=== PATIENT | male | born 1960 | race Caucasian/White ===

== ENCOUNTER 2023-10-28 11:11 | Emergency (ER) | payer OTHER, SELFPAY ==
[2023-10-28 11:18] VITALS: BP 158/99; PULSE 91; RESP 16; TEMP 36.1; O2SAT 96; BMI 47.0
--- NOTE | 2023-10-28 14:38 | ED.SKABFB ---
HPI - Skin/Abscess/Foreign Bdy General Chief complaint: Skin/Abscess/Foreign Body Stated complaint: wounds on leg, drainage t-3months Time Seen by Provider: 10/28/23 14:18 Source: patient Mode of arrival: Family Vehicle History of Present Illness HPI narrative: 63-year-old male with history of PE on Xarelto presents by private vehicle from home for evaluation of bilateral lower extremity wounds. Patient states that approximately 3 months ago he accidentally cut himself on a trailer. He was evaluated by his primary care doctor and placed on amoxicillin. He states that his wounds have not healed over the last 3 months and continue to ooze. He states that he was about to go visit his father, who is dying of cancer, and wants to make sure that his wounds are addressed before he goes and stays with his father Related Data Previous Rx's Medication Instructions Recorded furosemide 20 mg tablet 20 mg PO DAILY #14 tabs 10/28/23 Allergies Allergy/AdvReac Type Severity Reaction Status Date / Time No Known Drug Allergies Allergy Verified 10/28/23 11:23 Review of Systems Review of Systems Narrative: See HPI Patient History Social History Smoking Status: Never smoker Smoking Status: Never smoker Substance Use Type: does not use Exam Initial Vital Signs Initial Vital Signs: Vital Signs Temperature 97.0 F L 10/28/23 11:18 Pulse Rate 91 H 10/28/23 11:18 Respiratory Rate 16 10/28/23 11:18 Blood Pressure 158/99 H 10/28/23 11:18 Pulse Oximetry 96 10/28/23 11:18 Oxygen Delivery Method Room Air 10/28/23 11:18 Const: Awake, alert, no acute distress, obese Cardiac: regular rate, regular rhythm RESP: unlabored, speaking in complete sentences MSK: Lymphedema bilateral lower extremities, no deformity Skin: Lower extremity lymphedema, small 2 cm ulceration anterior of right and left legs, 2 x 3 cm ulceration posterior left lower extremity Neuro: AO x3, CN II-XII grossly intact, moves all extremities Course Orders Ordered: ED Orders 10/28/23 14:50 CBC Auto Diff [Complete Blood Count AUTO DIFF] Stat CMP [Comprehensive Metabolic Panel] Stat Vital Signs Vital signs: Vital Signs - 8 hr 10/28/23 11:18 Temperature 97.0 F L Pulse Rate 91 H Respiratory Rate 16 Blood Pressure 158/99 H Pulse Oximetry 96 Oxygen Delivery Method Room Air MDM - Skin/Abscess/Foreign Bdy Lab Data 10/28/23 14:50 10/28/23 14:50 Labs: Lab Results 10/28/23 Range/Units 14:50 WBC 7.8 (4.5-11.0) X10^3/uL RBC 5.26 (4.5-5.9) X10^6/uL Hgb 15.9 (13.5-17.5) g/dL Hct 47.4 (41-53) % MCV 90.2 (80-100) fL MCH 30.3 (26-34) PG MCHC 33.5 (30-36) % RDW 14.6 (11.6-14.8) % Plt Count 142 L (150-400) X10^3/uL Neut % (Auto) 59.8 (50-75) % Lymph % (Auto) 25.7 (25-40) % Owsley % (Auto) 10.3 (3-14) % Eos % (Auto) 3.7 (2-4) % Baso % (Auto) 0.5 (0-2) % Neut # (Auto) 4600 (5746-0890) /uL Lymph # (Auto) 2000 (6817-7056) /uL Owsley # (Auto) 800 (0-900) /uL Eos # (Auto) 300 (0-450) /uL Baso # (Auto) 0 (0-100) /uL Sodium 140 (137-145) mmol/L Potassium 4.3 (3.4-5.1) mmol/L Chloride 111 H (98-107) mmol/L Carbon Dioxide 26 (22-32) mmol/L BUN 21 H (9-20) mg/dL Creatinine 1.05 (0.66-1.25) mg/dL Estimated GFR > 60 (>60) mL/min BUN/Creatinine Ratio 20.0 (6-22) Glucose 101 (80-110) mg/dL Calcium 8.8 (8.4-10.2) mg/dL Total Bilirubin 0.8 (0.2-1.3) mg/dL AST 30 (17-59) IU/L ALT 29 (<50) IU/L Alkaline Phosphatase 90 (38-126) U/L Total Protein 6.3 (6.3-8.2) g/dL Albumin 3.5 (3.5-5.0) g/dL Globulin 2.8 (1.7-4.1) g/dL Albumin/Globulin Ratio 1.3 (1.0-2.8) MDM Narrative Medical decision making narrative: Chronic nonhealing lower extremity wounds. Wounds do not appear to be acutely infected. He seems to have extensive lymphedema in his lower extremities from his knee down. Patient counseled on presumptive diagnosis of lymphedema as well as how it affects wound healing. He was placed in Placido wrap compression bandages, a wound care referral was faxed to establish patient. Short course of Lasix sent to pharmacy of choice. Patient states that after his father passes he will return to [place] for wound care. Discharge Plan Departure Patient Disposition: Home Clinical Impression: Lymphedema, Nonhealing nonsurgical wound Instructions: DI for Lymphedema Activity Restrictions/Additional Instructions: Your labs appear to be nonhealing, not due to infection, but likely lymphedema, which is usually a vein drainage problem. I placed a referral to the [facility], and to help with fluid retention I am sending a prescription for a water pill to your pharmacy. Take this daily for the next 1-2 weeks. Elevate your legs whenever at rest to help decrease swelling. Keep the wraps on your legs when possible to help decrease swelling and push fluid back Prescriptions: New furosemide 20 mg tablet 20 mg PO DAILY Qty: 14 0RF Stand Alone Forms: Patient Portal/API
[2023-10-28 15:03] LABS: Add Manual Diff / Slide Review NO; Basophils Absolute Auto 0 /uL (0-100); Basophils Percent Auto 0.5 % (0-2); Eosinophils Absolute Auto 300 /uL (0-450); Eosinophils Percent Auto 3.7 % (2-4); Hematocrit 47.4 % (41-53); Hemoglobin 15.9 g/dL (13.5-17.5); Lymphocytes Absolute Auto 2000 /uL (1100-4500); Lymphocytes Percent Auto 25.7 % (25-40); Mean Corpuscular HGB Conc 33.5 % (30-36); Mean Corpuscular Hemoglobin 30.3 PG (26-34); Mean Corpuscular Volume 90.2 fL (80-100); Monocytes Absolute Auto 800 /uL (0-900); Monocytes Percent Auto 10.3 % (3-14); Neutrophils Absolute Auto 4600 /uL (1500-7000); Neutrophils Percent Auto 59.8 % (50-75); Platelet Count 142 X10^3/uL (150-400); Red Blood Cell Count 5.26 X10^6/uL (4.5-5.9); Red Cell Distribution Width 14.6 % (11.6-14.8); White Blood Cell Count 7.8 X10^3/uL (4.5-11.0)
--- NOTE | 2023-10-28 15:23 | PC.NURSE ---
Applied non-adherent dressing over wounds and wrapped bilateral LE with zaina wraps. Pt tolerated procedure well.
[2023-10-28 15:27] LABS: Alanine Aminotransferase 29 IU/L (<50); Albumin 3.5 g/dL (3.5-5.0); Albumin Globulin Ratio 1.3 (1.0-2.8); Alkaline Phosphatase 90 U/L (38-126); Aspartate Aminotransferase 30 IU/L (17-59); Bilirubin Total 0.8 mg/dL (0.2-1.3); Blood Urea Nitrogen 21 mg/dL (9-20); Calcium 8.8 mg/dL (8.4-10.2); Carbon Dioxide 26 mmol/L (22-32); Chloride 111 mmol/L (98-107); Estimated Glomerular Filt Rate > 60 mL/min (>60); Globulin 2.8 g/dL (1.7-4.1); Glucose 101 mg/dL (80-110); HEMOLYSIS < 15 (0-50); Potassium 4.3 mmol/L (3.4-5.1); Sodium 140 mmol/L (137-145); Total Protein 6.3 g/dL (6.3-8.2)
--- NOTE | 2023-10-28 15:57 | PC.NURSE ---
Bilateral lower leg swelling. Brother reports drainage looked like pus. Bilateral lower shins wrapped per MD order. Lower leg slight redness as well.
[2023-10-28 16:00] VITALS: BP 163/101; PULSE 73; RESP 16; TEMP 36.5; O2SAT 96
== END 2023-10-28 16:00 | disposition home or self-care (01) ==
PROVIDERS: Emergency Provider Emergency Medicine
DX: I89.0 Lymphedema, not elsewhere classified (principal); T14.8XXA Other injury of unspecified body region, initial encounter
CPT/HCPCS: 36415; 80053; 85025; 99281; 99283